=== PATIENT | male | born 2000 | race Caucasian/White ===

== ENCOUNTER 2022-11-22 14:55 | Inpatient (IN) ==
--- NOTE | 2022-11-22 15:10 | ED.PDOC ---
General ED Provider: Dr. HAYDER NEVAREZ DO Chief Complaint: Overdose Stated Complaint: Patient is a 22 yo M here for fentanyl overdose Patient arrives afebrile, hypoxic 77% in the field 98% on 10 L facemask tachycardic and crying after 4 mg narcan EMS called by friend who found him passed out, patietn awake trying to make food with EMS arrival EMS brought him in for hypoxia Patient alert and oriented x4 GCS 15 No further narcan here yet He requests we call his mother Will monitor and repeat narcan if respiratory depression recurrs, otherwise will titrate oxygen as needed Time Seen by Provider: 11/22/22 14:56 Information Source: Patient and EMT Nursing and Triage Documentation Reviewed and Agree: Yes Review of Systems Review Of Systems Constitutional: Reports Weakness; Denies Chills or Fever Eyes: Denies Vision change or Foreign body sensation Ears, Nose, Mouth, Throat: Denies Ear pain or Nose discharge Respiratory: Denies Cough or Stridor Cardiac: Denies Chest pain or Palpitations GI: Denies Constipated or Diarrhea : Denies Dysuria or Incontinence Musculoskeletal: Denies Back pain or Joint pain Skin: Denies Bruising or Rash Neurological: Reports Anxiety Endocrine: Reports No symptoms Hematologic/Lymphatic: Reports No symptoms All Other Systems: Reviewed and Negative Physical Exam Physical Exam Appearance: Reports Well-appearing and Well-nourished Ill-appearing: Mild Pain Distress: Not Applicable Eyes: Reports FARHAD and EOMI ENT: Reports Ears normal, Nose normal and Other (Poor dentition) Neck: Supple Respiratory: Reports Airway patent, Breath sounds clear and Other (tachypnea) Cardiovascular: Reports Pulses normal and Tachycardia GI/: Reports Soft and Nontender Musculoskeletal: Reports Normal strength and ROM intact Skin: Reports Warm and Dry Neurological: Reports Sensation intact and Motor intact Psychiatric: Reports Anxious; Denies Depressed Interpretation EKG Interpretation EKG Interpretation By: ED Physician Time of EKG #1: 15:12 Rate: Tachy Rhythm: Sinus Ectopy: None ST Segment: Normal Interpretation: sinus tachycardia OK, no qt prolongation Radiology Interpretation Radiology Interpretation By: ED Physician Radiology Results: Positive Exam Interpreted: CXR Xray Comments: R sided consolidiaotn middle lobe Critical Care Note Critical Care Note Total Critical Care Time (mins): 65 Course Course 11/22/22 15:09 11/22/22 15:09 Orders, Labs, Meds: Lab Review 11/22/22 11/22/22 11/22/22 15:09 15:25 16:28 WBC 41.93 H RBC 5.24 Hgb 15.7 Hct 50.6 MCV 96.6 H MCH 30.0 MCHC 31.0 L RDW Coeff of Kike 12.4 Plt Count 415 Immature Gran % (Auto) 0.8 Neut % (Auto) 86.4 H Lymph % (Auto) 2.2 L [place] % (Auto) 10.5 H Eos % (Auto) 0.0 Baso % (Auto) 0.1 Neut # (Auto) 36.2 H Lymph # (Auto) 0.9 [place] # (Auto) 4.4 H Eos # (Auto) 0.0 Baso # (Auto) 0.0 Immature Gran # (Auto) 0.4 Puncture Site Rbrach Base Excess -10.8 L O2 Saturation 99.2 H ABG pH 7.27 L* ABG pCO2 35.0 ABG pO2 162.0 H ABG HCO3 16.1 L ABG Total CO2 17.2 L Levi Test Pos Hemoglobin 1.6 H Oxyhemoglobin 92.6 L Carboxyhemoglobin 5.9 H Total Hemoglobin 16.6 O2 Delivery Device Non rebreather Oxygen Liter Flow 10.00 FiO2 % 100.0 Sodium 142.4 Potassium 4.52 Chloride 108.7 H Carbon Dioxide 16.7 L Anion Gap 21.52 BUN 12.6 Creatinine 0.88 Estimated GFR (MDRD) 110.00 BUN/Creatinine Ratio 14.31 Glucose 61.8 L Lactic Acid 5.11 H Calcium 9.06 Total Bilirubin 0.58 AST 82.1 H ALT 36.8 Alkaline Phosphatase 106.3 Troponin I 0.060 Total Protein 7.62 Albumin 4.49 Globulin 3.13 Albumin/Globulin Ratio 1.43 Orders Category Date Time Status ABG DRAW REQUEST Stat CARDIO 11/22/22 15:26 Completed EKG-(ED ONLY) Stat CARDIO 11/22/22 14:57 Completed ABG COOX Stat LAB 11/22/22 15:25 Completed BLOOD CULTURE Stat LAB 11/22/22 15:34 Received CBC W/ AUTO DIFF Stat LAB 11/22/22 15:09 Completed COMPREHENSIVE METABOLIC PANEL Stat LAB 11/22/22 15:09 Completed DRUG SCREEN (RAPID FOR ED) [DRUG SCREEN, URINE, RAPID] LAB 11/22/22 17:38 Uncollected Stat LACTIC ACID Stat LAB 11/22/22 16:28 Completed TROPONIN I Stat LAB 11/22/22 15:09 Completed Ceftriaxone/D5w 1 gm Premix [Rocephin 1 gm/50 ml D5w] Meds 11/22/22 15:14 Discontinued 1 gm in 50 ml IV ONCE Metronidazole/Sodium Chloride [Flagyl 500 mg/100 ml] Meds 11/22/22 15:14 Discontinued 500 mg in 100 ml IV ONCE Sodium Chloride 0.9% [Sodium Chloride] 1,000 ml Meds 11/22/22 15:14 Discontinued IV BOLUS Sodium Chloride 0.9% [Sodium Chloride] 1,000 ml Meds 11/22/22 16:14 Discontinued IV BOLUS CHEST, 1V AP ONLY Stat RADS 11/22/22 14:57 Completed Medications Discontinued Medications Generic Name Dose Route Start Last Admin Trade Name Freq PRN Reason Stop Dose Admin CEFTRIAXONE/D5W 1 GM PREMIX 1 gm in 50 mls @ 100 mls/hr 11/22/22 15:14 11/22/22 15:40 Rocephin 1 Gm/50 Ml D5w IV 11/22/22 15:43 100 mls/hr ONCE ONE Administration Metronidazole 500 mg in 100 mls @ 100 mls/hr 11/22/22 15:14 11/22/22 16:28 Flagyl 500 Mg/100 Ml IV 11/22/22 16:13 100 mls/hr ONCE ONE Administration Sodium Chloride 1,000 mls @ 1,000 mls/hr 11/22/22 15:14 11/22/22 15:42 Sodium Chloride IV 11/22/22 16:13 1,000 mls/hr BOLUS STA Administration Sodium Chloride 1,000 mls @ 1,000 mls/hr 11/22/22 16:14 11/22/22 17:52 Sodium Chloride IV 11/22/22 17:13 1,000 mls/hr BOLUS STA Administration Vital Signs: Temp Pulse Resp BP Pulse Ox 11/22/22 14:58 97.2 F L 131 H 20 137/89 90 L Patient amenable to ER obs and mother johnson - he was just kicked out of rehab yesterday per her CXR concerning for R sided aspiration pneumonia will cover with sepsis protocol, gental fluids less than 30 cc/kg due to hypoxia and concern for pulmonary edema 5L NC spo2 95% improving Patient has had 2100 ml sepsis bolus map 64/65, will give 500 NS, if map stays above 65 will hold care if not will add CVC and levophed MDM: Patient is a 22 yo M who overdosed accidentally snorting fentanyl today Patient afebrile, tachycardic with low blood pressure Patient had Narcan in the field and no narcan needed in the ED Exam concerning for sepsis and pneumonia 3+ labs and 1 image reviewed by me sepsis bundle started Initially high BP while patient anxious then as he rested blood pressure lowered Gentle fluids accelerated to full sepsis bolus Hypoxia improved and NC titrated down from 10 L face mask to 5 L NC Patient has map of 64/65 after 21 ML NS Rocephin and Flagyl ordered Patient amenable to admission Consults to hospitalist team WDX: Accidental fentanyl overdose, hypoxia, sepsis, aspiration pneumonia acute condition high complexity DDX: I considered ACS, intentional overdose, pneumothorax but these are less likely Patient admitted, will continue fluids Discharge Plan Discharge Patient Disposition: ADMITTED INPATIENT Discharge Problem: Aspiration pneumonia, Hypoxia, Sepsis, Accidental fentanyl overdose Did you review [place] [employer] for ALL controlled substances?: Not Applicable ED Provider: HAYDER NEVAREZ Condition: Serious Physician Progress Note: []
[2022-11-22] MEDS ORDERED: ROCEPHIN 1 GM/50 ML D5W 1 GM/50 ML BAG IV ONE (15:14)
[2022-11-22] MEDS ORDERED: SODIUM CHLORIDE 1,000 ML IV STA ×2 (15:14→16:14)
[2022-11-22] MEDS ORDERED: FLAGYL 500 MG/100 ML 500 MG/100 ML BAG IV ONE (15:14)
[2022-11-22 15:15] LABS: BASOPHILS % (AUTO) 0.1 % (0.0-3.0); HEMATOCRIT 50.6 % (42.0-52.0); HEMOGLOBIN 15.7 g/dl (14.0-18.0); IMMATURE GRANULOCYTE # (AUTO) 0.4 (0.0-1.0); IMMATURE GRANULOCYTE % (AUTO) 0.8 % (0.0-5.0); LYMPHOCYTES # (AUTO) 0.9 K/uL (0.60-3.4); LYMPHOCYTES % (AUTO) 2.2 (10.0-50.0); MEAN CORPUSCULAR VOLUME 96.6 fl (80.0-94.0); MONOCYTES # (AUTO) 4.4 K/uL (0.4-2.0); MONOCYTES % (AUTO) 10.5 (0-10); NEUTROPHILS # (AUTO) 36.2 K/ul (2.0-6.9); NEUTROPHILS % (AUTO) 86.4 % (42.2-75.2); PLATELET COUNT 415 10^3/uL (140-440); RDW COEFFICIENT OF VARIATION 12.4 % (11.6-14.8); RED BLOOD COUNT 5.24 10^6/ul (4.70-6.10); WHITE BLOOD COUNT 41.93 K/ul (4.2-10.2)
--- NOTE | 2022-11-22 15:23 | DI ---
EXAM: CHEST RADIOGRAPH TECHNIQUE: Single frontal chest radiograph. HISTORY: Shortness of breath. COMPARISON: None. FINDINGS: There is right lung pneumonia. This is likely in the right middle and lower lobes. The left lung is clear. The heart size is normal. The osseous structures are unremarkable. IMPRESSION: 1. Right lung pneumonia
[2022-11-22 15:26] LABS: ALANINE AMINOTRANSFERASE 36.8 U/L (0-50); ALBUMIN 4.49 g/dL (3.5-5.0); ALKALINE PHOSPHATASE 106.3 U/L (38-126); ASPARTATE AMINO TRANSFERASE 82.1 U/L (17-59); BILIRUBIN,TOTAL 0.58 mg/dL (0.2-1.3); BLOOD UREA NITROGEN 12.6 mg/dL (9-20); CALCIUM 9.06 mg/dL (8.4-10.2); CARBON DIOXIDE 16.7 mmol/L (22-30.0); CHLORIDE 108.7 mmol/L (98-107); CREATININE 0.88 mg/dL (0.60-1.10); GLUCOSE 61.8 mg/dL (74-106); POTASSIUM 4.52 mmol/L (3.5-5.1); SODIUM 142.4 mmol/L (134.5-145); TOTAL PROTEIN 7.62 g/dL (6.3-8.2)
[2022-11-22 15:35] LABS: ABG O2 HGB 92.6 % (95-100); BEecf -10.8 (-2.0-3.0); COHb 5.9 (0.5-1.5); HCO3 16.1 (21-28); MetHb 1.6 (0-1.5); TCO2 17.2 (19-24); sO2 99.2 % (94-98); tHb 16.6 g/dl (11.7-17.4)
[2022-11-22 15:38] LABS: TROPONIN I 0.06 ng/ml (0.0000-0.120)
[2022-11-22 15:47] LABS: ABG PH 7.27 (7.35-7.45)
[2022-11-22] MEDS ORDERED: TYLENOL PO PRN (20:22)
[2022-11-22] MEDS ORDERED: ALBUTEROL 0.083% NEB NEB PRN (20:28)
[2022-11-22] MEDS: SODIUM CHLORIDE 1,000 ML IV SCH (21:21)
[2022-11-22] MEDS: SOLU-MEDROL 125 MG IVP SCH (21:30)
[2022-11-22] MEDS ORDERED: ZOFRAN 4 MG/2 ML IVP PRN (22:11)
[2022-11-22 22:16] VITALS: BMI 21.9
[2022-11-22] MEDS: DUONEB NEB SCH (23:00)
[2022-11-22 23:26] LABS: BILIRUBIN,URINE Negative (NEGATIVE); CLARITY,URINE Clear (CLEAR); COLOR,URINE Yellow (YELLOW); KETONES,URINE 1+ (NEGATIVE); LEUKOCYTE ESTERASE ,URINE Negative (NEGATIVE); NITRITE,URINE Negative (NEGATIVE); PROTEIN,URINE 1+ (NEGATIVE); URINE, BLOOD 2+ (NEGATIVE); UROBILINOGEN,URINE 0.2 (0.2)
[2022-11-22 23:33] LABS: GLUCOSE, URINE (UA) 3+ (NEGATIVE)
[2022-11-22 23:40] LABS: ABG O2 HGB 80.3 % (95-100); ABG PH 7.44 (7.35-7.45); BEecf -1.1 (-2.0-3.0); COHb 2.7 (0.5-1.5); HCO3 23.1 (21-28); MetHb 1.5 (0-1.5); TCO2 24.1 (19-24); sO2 80.7 % (94-98); tHb 14.3 g/dl (11.7-17.4)
[2022-11-22 23:44] LABS: SQUAMOUS EPITHELIAL CELL,UR 0-2 (0-5)
[2022-11-23 01:11] LABS: ABG O2 HGB 96.4 % (95-100); ABG PH 7.42 (7.35-7.45); BEecf 0.1 (-2.0-3.0); HCO3 24.6 (21-28); MetHb 1.7 (0-1.5); TCO2 25.8 (19-24); sO2 99.7 % (94-98); tHb 14.2 g/dl (11.7-17.4)
[2022-11-23] MEDS: DUONEB NEB SCH ×6 (01:18→21:25)
[2022-11-23] MEDS ORDERED: DUONEB NEB SCH (02:00)
[2022-11-23] MEDS: SODIUM CHLORIDE 1,000 ML IV SCH ×4 (04:38→23:14)
[2022-11-23 04:59] LABS: ABG O2 HGB 91.6 % (95-100); ABG PH 7.46 (7.35-7.45); BEecf 2.5 (-2.0-3.0); COHb 2.3 (0.5-1.5); HCO3 26.3 (21-28); MetHb 1.5 (0-1.5); TCO2 27.4 (19-24); sO2 93.3 % (94-98)
[2022-11-23] MEDS: SOLU-MEDROL 125 MG IVP SCH ×3 (05:01→20:01)
[2022-11-23] MEDS: ZOSYN 3.375 GM 3.375 GM in SODIUM CHLORIDE 100ML 100 ML IV SCH ×3 (05:29→17:47)
[2022-11-23 06:15] LABS: BASOPHILS % (AUTO) 0.1 % (0.0-3.0); HEMATOCRIT 42.1 % (42.0-52.0); HEMOGLOBIN 13.5 g/dl (14.0-18.0); IMMATURE GRANULOCYTE # (AUTO) 0.2 (0.0-1.0); IMMATURE GRANULOCYTE % (AUTO) 0.6 % (0.0-5.0); LYMPHOCYTES # (AUTO) 0.6 K/uL (0.60-3.4); LYMPHOCYTES % (AUTO) 1.9 (10.0-50.0); MEAN CORPUSCULAR HEMOGLOBIN 29.2 pg (27.0-31.0); MEAN CORPUSCULAR HGB CONC 32.1 (31.8-35.4); MEAN CORPUSCULAR VOLUME 91.1 fl (80.0-94.0); MONOCYTES # (AUTO) 0.9 K/uL (0.4-2.0); NEUTROPHILS # (AUTO) 27.1 K/ul (2.0-6.9); NEUTROPHILS % (AUTO) 94.4 % (42.2-75.2); PLATELET COUNT 298 10^3/uL (140-440); RDW COEFFICIENT OF VARIATION 12.7 % (11.6-14.8); RED BLOOD COUNT 4.62 10^6/ul (4.70-6.10); WHITE BLOOD COUNT 28.73 K/ul (4.2-10.2)
[2022-11-23 06:27] LABS: ALANINE AMINOTRANSFERASE 56.4 U/L (0-50); ALBUMIN 3.27 g/dL (3.5-5.0); ALKALINE PHOSPHATASE 66.6 U/L (38-126); ASPARTATE AMINO TRANSFERASE 162.5 U/L (17-59); BILIRUBIN,TOTAL 0.72 mg/dL (0.2-1.3); CALCIUM 8.62 mg/dL (8.4-10.2); CARBON DIOXIDE 26.2 mmol/L (22-30.0); CHLORIDE 104.3 mmol/L (98-107); CREATININE 0.65 mg/dL (0.60-1.10); GLUCOSE 132.4 mg/dL (74-106); POTASSIUM 4.19 mmol/L (3.5-5.1); SODIUM 136.7 mmol/L (134.5-145); TOTAL PROTEIN 5.88 g/dL (6.3-8.2)
[2022-11-23 06:53] LABS: AMPHETAMINE SCREEN,URINE POSITIVE (NEGATIVE); BARBITURATE SCREEN,URINE NEGATIVE (NEGATIVE); BENZODIAZEPINES SCREEN,URINE NEGATIVE (NEGATIVE); CANNABINOID SCREEN,URINE POSITIVE (NEGATIVE); COCAIN SCREEN,URINE NEGATIVE (NEGATIVE); METHADONE URINE SCREEN NEGATIVE (NEGATIVE); METHAMPHETAMINES SCREEN,URINE POSITIVE (NEGATIVE); OPIATE SCREEN,URINE NEGATIVE (NEGATIVE); OXYCODONE URINE SCREEN NEGATIVE (NEGATIVE); PHENCYCLIDINE SCREEN,URINE NEGATIVE (NEGATIVE); PROPOXYPHENE URINE SCREEN NEGATIVE (NEGATIVE); TRICYCLIC ANTIDEPRESSANTS URIN NEGATIVE (NEGATIVE)
[2022-11-23] MEDS: VANCOMYCIN 1.25 GM/250 ML BAG 1.25 GM/250 ML BAG IV SCH ×2 (08:42→16:24)
[2022-11-23] MEDS ORDERED: VANCOMYCIN 1 GRAM/200 ML PREMIX 1 GM/200 ML BAG IV SCH (09:00)
--- NOTE | 2022-11-23 12:18 | PCM ---
Date of Service Date Seen by Provider: 11/23/22 Time Seen by Provider: 08:30 Admit Day/Time Admission Date: 11/22/22 Reason for Admission Chief Complaint: HYPOXIA, SEPSIS, PNEUMONIA Hospital Provider Hospital Provider[facility] History of Present Illness History of Present Illness: 22 yo presented to the ER following an unintentional overdose of fentanyl per patient. A friend found him unresponsive. EMS reported O2 sat upon arrival was in the 70s. He was given a dose of narcan and O2 sat improved to 85%. He was placed on a NRB at 10L. ER weaned patient down to 2L prior to admission the the med/surg floor. WBC was found to be in the 40s, aspiration pneumonia noted on chest x-ray, and lactic acidosis. Mother reported that he recently got kicked out of rehab and has been hanging around the same group of friends as before. Patient reports he has never overdosed in the past. At approximately 2330 last night, patient became more hypoxic with sat dropping down into the 80s after being put on NRB. ABG was obtained and showed PO2 in the 40s. He was placed on vapotherm at 100% FiO2 and improved after 1 hour. FiO2 was >100 and was weaned down to 40%. Patient states he feels he is breathing better but just generally feels tired and weak. Denies any pain. No fever noted. No other complaints. Case Discussed With Case Discussed With: Patient's case was discussed with the ER Physicians, Dr. Moran [facility] Surgical History History of ankle surgery Z98.890 - Other specified postprocedural states (ICD-10) Family History MATERNAL GRANDFATHER No problems noted. PATERNAL GRANDFATHER Diabetes MATERNAL GRANDMOTHER Hypertension Schizophrenia Social History Smoking and tobacco status: Current every day smoker Alcohol intake: current Alcohol intake frequency: a few times a month Alcohol type: beer Substance use type: opiates Counseling given: Yes Counseling provided: treatment program Adopted: No Caregiver/support person: Yes Foster care: No Household members: family Housing: house Lives independently: No Allergies Allergies Allergy/AdvReac Type Severity Reaction Status Date / Time No Known Allergies Allergy Unverified 11/22/22 14:56 Current Medications Home Medications 1 [No Reported Medications] 11/22/22 [History Confirmed 11/22/22 Last Taken Unknown] Home Acetaminophen (Acetaminophen 325 Mg Tablet) 650 mg PO Q4H PRN PRN Reason: Mild Pain Albuterol Sulfate (Albuterol Sulfate 0.083% Vial.Neb) 2.5 mg NEB RTQ4H PRN PRN Reason: Wheezing Albuterol/Ipratropium (Ipratropium/Albuterol Vial.Neb) 3 ml NEB RTQ4H SCOTT Last Admin: 11/23/22 09:10 Dose: 3 ml Sodium Chloride (Sodium Chloride) 1,000 mls @ 125 mls/hr IV .Q8H [facility] Last Admin: 11/23/22 04:38 Dose: 125 mls/hr Piperacillin Sod/Tazobactam (Sod 3.375 gm/ Sodium Chloride) 100 mls @ 200 mls/hr IV Q6HR [facility] Stop: 11/26/22 05:59 Last Admin: 11/23/22 05:29 Dose: 200 mls/hr VANCOMYCIN/WATER FOR INJ (PEG) (Vancomycin 1.25 Gm/250 Ml Bag) 1.25 gm in 250 mls @ 250 mls/hr IV 0100,0900,1700 [facility] Stop: 11/26/22 08:59 Last Admin: 11/23/22 08:42 Dose: 250 mls/hr Methylprednisolone Sodium Succinate (Methylprednisolone Sod Succ/Pf 125 Mg/2 Ml Vial) 40 mg IVP Q8HR [facility] Last Admin: 11/23/22 05:01 Dose: 40 mg Ondansetron HCl (Ondansetron Hcl/Pf 4 Mg/2 Ml Sdv) 4 mg IVP Q6H PRN PRN Reason: Nausea / Vomiting Discontinued Medications Albuterol/Ipratropium (Ipratropium/Albuterol Vial.Neb) 3 ml NEB RTQ4H [place]OTT CEFTRIAXONE/D5W 1 GM PREMIX (Rocephin 1 Gm/50 Ml D5w) 1 gm in 50 mls @ 100 mls/hr IV ONCE ONE Stop: 11/22/22 15:43 Last Admin: 11/22/22 15:40 Dose: 100 mls/hr Metronidazole (Flagyl 500 Mg/100 Ml) 500 mg in 100 mls @ 100 mls/hr IV ONCE ONE Stop: 11/22/22 16:13 Last Admin: 11/22/22 16:28 Dose: 100 mls/hr Sodium Chloride (Sodium Chloride) 1,000 mls @ 1,000 mls/hr IV BOLUS STA Stop: 11/22/22 16:13 Last Admin: 11/22/22 15:42 Dose: 1,000 mls/hr Sodium Chloride (Sodium Chloride) 1,000 mls @ 1,000 mls/hr IV BOLUS STA Stop: 11/22/22 17:13 Last Admin: 11/22/22 17:52 Dose: 1,000 mls/hr Review of Systems Constitutional: Reports Fatigue and Weakness Head: Reports Normocephalic Eyes: Reports No symptoms Ears: Reports No symptoms Nose: Reports No symptoms Mouth: Reports No symptoms Throat: Reports No symptoms Cardiovascular: Reports No symptoms Respiratory: Reports Shortness of air Gastrointestinal: Reports No symptoms Genitourinary: Reports No Symptoms Musculoskeletal: Reports No symptoms Endocrine: Reports No symptoms Hematology: Reports No symptoms Immunology: Reports No symptoms Neurological: Reports No symptoms Psychiatric: Reports No symptoms Physical examination Most Recent Vital Signs: Most Recent Vital Signs Temperature 98.3 F 11/23/22 10:00 Temperature Source Oral 11/23/22 10:00 Temperature Source Infrared 11/22/22 14:58 Pulse Rate 93 11/23/22 10:00 Respiratory Rate 17 11/23/22 10:00 Blood Pressure 126/70 11/23/22 10:00 Blood Pressure Mean 88 11/23/22 10:00 Blood Pressure Right Arm 98/67 11/22/22 20:44 Blood Pressure Location Left Arm 11/23/22 10:00 Blood Pressure Position Supine 11/23/22 10:00 O2 Sat by Pulse Oximetry 98 11/23/22 10:00 Oxygen Delivery Method Vapo Therm 11/23/22 10:00 Oxygen Flow Rate 40 11/23/22 08:00 Fraction of Inspired Oxygen (FIO2) 40 11/23/22 10:00 Height 6 ft 11/22/22 20:44 Weight 162 lb 11/22/22 20:44 Telemetry Type Remote Telemetry 11/23/22 07:00 Telemetry Monitoring Continues 11/23/22 07:00 Telemetry Heart Rate 100 11/23/22 07:00 Telemetry SPO2 98 11/23/22 07:00 EKG UT Interval 0.14 11/23/22 07:00 EKG QRS Interval 0.08 11/23/22 07:00 Telemetry Strip Reading sr/st 11/23/22 07:00 Appearance: Positive Well-appearing, Well-nourished, Alert and Oriented x3 and Thin Skin: Positive Warm, Good Turgor and Good Color HEENT: Positive Normocephalic and Atraumatic Neck: Positive Supple and Midline Trachea Chest/Lungs: Positive Symmetrical With Equal Breath Sounds, Rhonci (RLL) and Good Air Movement all 4 Lung Anne Heart: Positive RRR and Pulses Normal GI/: Positive Soft, Nontender, Bowel Sounds Normal and No Distention Musculoskeletal: Positive Normal Gait and Station Extremities: Positive Intact Peripheral Pulses and Good ROM in All Joints Neurological: Positive Sensation Intact, Motor intact, Reflexes Intact, Alert, Oriented and Muscle Strength 5/5 in Upper and Lower Extremities Bilaterally Psychiatric: Positive Oriented x4, Appropriate Mood, Appropriate Affect and Intact Memory Labs This Visit Labs This Visit: Labs This Visit 11/22/22 11/22/22 11/22/22 15:09 15:25 16:28 WBC 41.93 H RBC 5.24 Hgb 15.7 Hct 50.6 MCV 96.6 H MCH 30.0 MCHC 31.0 L RDW Coeff of Kike 12.4 Plt Count 415 Immature Gran % (Auto) 0.8 Neut % (Auto) 86.4 H Lymph % (Auto) 2.2 L [place] % (Auto) 10.5 H Eos % (Auto) 0.0 Baso % (Auto) 0.1 Neut # (Auto) 36.2 H Lymph # (Auto) 0.9 [place] # (Auto) 4.4 H Eos # (Auto) 0.0 Baso # (Auto) 0.0 Immature Gran # (Auto) 0.4 Puncture Site Rbrach Base Excess -10.8 L O2 Saturation 99.2 H ABG pH 7.27 L* ABG pCO2 35.0 ABG pO2 162.0 H ABG HCO3 16.1 L ABG Total CO2 17.2 L Levi Test Pos Hemoglobin 1.6 H Oxyhemoglobin 92.6 L Carboxyhemoglobin 5.9 H Total Hemoglobin 16.6 O2 Delivery Device Non rebreather Oxygen Liter Flow 10.00 FiO2 % 100.0 Sodium 142.4 Potassium 4.52 Chloride 108.7 H Carbon Dioxide 16.7 L Anion Gap 21.52 BUN 12.6 Creatinine 0.88 Estimated GFR (MDRD) 110.00 BUN/Creatinine Ratio 14.31 Glucose 61.8 L Lactic Acid 5.11 H Calcium 9.06 Total Bilirubin 0.58 AST 82.1 H ALT 36.8 Alkaline Phosphatase 106.3 Troponin I 0.060 Total Protein 7.62 Albumin 4.49 Globulin 3.13 Albumin/Globulin Ratio 1.43 Urine Color Urine Clarity Urine pH Ur Specific [place] Urine Protein Urine Glucose (UA) Urine Ketones Urine Blood Urine Nitrite Urine Bilirubin Urine Urobilinogen Ur Leukocyte Esterase Urine Microscopic RBC Ur Squamous Epith Cells Urine Opiates Screen Ur Oxycodone Screen Urine Methadone Screen Ur Propoxyphene Screen Ur Barbiturates Screen U Tricyclic Antidepress Ur Phencyclidine Scrn Ur Amphetamine Screen U Methamphetamines Scrn U Benzodiazepines Scrn Urine Cocaine Screen U Cannabinoids Screen 11/22/22 11/22/22 11/22/22 17:38 20:21 22:00 WBC RBC Hgb Hct MCV MCH MCHC RDW Coeff of Kike Plt Count Immature Gran % (Auto) Neut % (Auto) Lymph % (Auto) [place] % (Auto) Eos % (Auto) Baso % (Auto) Neut # (Auto) Lymph # (Auto) [place] # (Auto) Eos # (Auto) Baso # (Auto) Immature Gran # (Auto) Puncture Site Base Excess O2 Saturation ABG pH ABG pCO2 ABG pO2 ABG HCO3 ABG Total CO2 Levi Test Hemoglobin Oxyhemoglobin Carboxyhemoglobin Total Hemoglobin O2 Delivery Device Oxygen Liter Flow FiO2 % Sodium Potassium Chloride Carbon Dioxide Anion Gap BUN Creatinine Estimated GFR (MDRD) BUN/Creatinine Ratio Glucose Lactic Acid 2.32 H Calcium Total Bilirubin AST ALT Alkaline Phosphatase Troponin I Total Protein Albumin Globulin Albumin/Globulin Ratio Urine Color Yellow Urine Clarity Clear Urine pH 5.0 Ur Specific [place] 1.025 Urine Protein 1+ H Urine Glucose (UA) 3+ H Urine Ketones 1+ H Urine Blood 2+ H Urine Nitrite Negative Urine Bilirubin Negative Urine Urobilinogen 0.2 Ur Leukocyte Esterase Negative Urine Microscopic RBC 10-20 Ur Squamous Epith Cells 0-2 Urine Opiates Screen Negative Ur Oxycodone Screen Negative Urine Methadone Screen Negative Ur Propoxyphene Screen Negative Ur Barbiturates Screen Negative U Tricyclic Antidepress Negative Ur Phencyclidine Scrn Negative Ur Amphetamine Screen Positive H U Methamphetamines Scrn Positive H U Benzodiazepines Scrn Negative Urine Cocaine Screen Negative U Cannabinoids Screen Positive H 11/22/22 11/23/22 11/23/22 23:35 01:05 04:39 WBC RBC Hgb Hct MCV MCH MCHC RDW Coeff of Kike Plt Count Immature Gran % (Auto) Neut % (Auto) Lymph % (Auto) [place] % (Auto) Eos % (Auto) Baso % (Auto) Neut # (Auto) Lymph # (Auto) [place] # (Auto) Eos # (Auto) Baso # (Auto) Immature Gran # (Auto) Puncture Site Rb Lb Rrad Base Excess -1.1 0.1 2.5 O2 Saturation 80.7 L 99.7 H 93.3 L ABG pH 7.44 7.42 7.46 H ABG pCO2 34.0 L 38.0 37.0 ABG pO2 43.0 L* 191.0 H 64.0 L ABG HCO3 23.1 24.6 26.3 ABG Total CO2 24.1 H 25.8 H 27.4 H Levi Test + + + Hemoglobin 1.5 1.7 H 1.5 Oxyhemoglobin 80.3 L 96.4 91.6 L Carboxyhemoglobin 2.7 H 2.0 H 2.3 H Total Hemoglobin 14.3 14.2 14.0 O2 Delivery Device Cannula Vapotherm Vapotherm Oxygen Liter Flow 6.00 FiO2 % 44.0 100.0 40.0 Sodium Potassium Chloride Carbon Dioxide Anion Gap BUN Creatinine Estimated GFR (MDRD) BUN/Creatinine Ratio Glucose Lactic Acid Calcium Total Bilirubin AST ALT Alkaline Phosphatase Troponin I Total Protein Albumin Globulin Albumin/Globulin Ratio Urine Color Urine Clarity Urine pH Ur Specific [place] Urine Protein Urine Glucose (UA) Urine Ketones Urine Blood Urine Nitrite Urine Bilirubin Urine Urobilinogen Ur Leukocyte Esterase Urine Microscopic RBC Ur Squamous Epith Cells Urine Opiates Screen Ur Oxycodone Screen Urine Methadone Screen Ur Propoxyphene Screen Ur Barbiturates Screen U Tricyclic Antidepress Ur Phencyclidine Scrn Ur Amphetamine Screen U Methamphetamines Scrn U Benzodiazepines Scrn Urine Cocaine Screen U Cannabinoids Screen 11/23/22 06:09 WBC 28.73 H D RBC 4.62 L Hgb 13.5 L Hct 42.1 D MCV 91.1 D MCH 29.2 MCHC 32.1 RDW Coeff of Kike 12.7 Plt Count 298 Immature Gran % (Auto) 0.6 Neut % (Auto) 94.4 H Lymph % (Auto) 1.9 L [place] % (Auto) 3.0 Eos % (Auto) 0.0 Baso % (Auto) 0.1 Neut # (Auto) 27.1 H Lymph # (Auto) 0.6 [place] # (Auto) 0.9 Eos # (Auto) 0.0 Baso # (Auto) 0.0 Immature Gran # (Auto) 0.2 Puncture Site Base Excess O2 Saturation ABG pH ABG pCO2 ABG pO2 ABG HCO3 ABG Total CO2 Levi Test Hemoglobin Oxyhemoglobin Carboxyhemoglobin Total Hemoglobin O2 Delivery Device Oxygen Liter Flow FiO2 % Sodium 136.7 Potassium 4.19 Chloride 104.3 Carbon Dioxide 26.2 D Anion Gap 10.39 BUN 11.0 Creatinine 0.65 Estimated GFR (MDRD) 157.00 BUN/Creatinine Ratio 16.92 Glucose 132.4 H D Lactic Acid 1.69 Calcium 8.62 Total Bilirubin 0.72 AST 162.5 H D ALT 56.4 H Alkaline Phosphatase 66.6 D Troponin I Total Protein 5.88 L Albumin 3.27 L Globulin 2.61 Albumin/Globulin Ratio 1.25 Urine Color Urine Clarity Urine pH Ur Specific [place] Urine Protein Urine Glucose (UA) Urine Ketones Urine Blood Urine Nitrite Urine Bilirubin Urine Urobilinogen Ur Leukocyte Esterase Urine Microscopic RBC Ur Squamous Epith Cells Urine Opiates Screen Ur Oxycodone Screen Urine Methadone Screen Ur Propoxyphene Screen Ur Barbiturates Screen U Tricyclic Antidepress Ur Phencyclidine Scrn Ur Amphetamine Screen U Methamphetamines Scrn U Benzodiazepines Scrn Urine Cocaine Screen U Cannabinoids Screen Microbiology This Visit 11/22/22 15:20 Blood Blood Culture - Final Imaging Imaging: EXAM: CHEST RADIOGRAPH TECHNIQUE: Single frontal chest radiograph. HISTORY: Shortness of breath. COMPARISON: None. FINDINGS: There is right lung pneumonia. This is likely in the right middle and lower lobes. The left lung is clear. The heart size is normal. The osseous structures are unremarkable. IMPRESSION: 1. Right lung pneumonia Review Statement Review Statement: I have independently reviewed and interpreted the labs/EKGs/imaging that were ordered by the ER provider. I have reviewed all outside records that are available currently in our EMR including imaging/notes/labs from previous visits. Plan Plan: 1. Acute Hypoxic Respiratory Failure in the setting of Aspiration Pneumonia and drug overdose - on vapotherm currently, wean off as tolerated, receiving vanc and zosyn, steroids, nebs 2. Sepsis in setting of aspiration pneumonia - receiving vancomycin and zosyn, 2 prelim blood cultures showing gram positive cocci, received sepsis IVF in ER, continue NS@125mL/hr 3. Acute Transaminitis - likely due to #2, will trend enzymes, if worsening will complete hep panel and US liver 4. Drug abuse - patient requesting resources, recently kicked out of rehab, education provided 5. Tobacco use - nicotine patch if patient desires, discussed cessation DVT Prophylaxis: Up ad [place] Time Spent: Greater than 80 minutes spent with patient, 50% of the time spent with this patient was devoted to counseling and coordination of care. Advanced Care Plannin minutes spent discussing advance care planning. Smoking Cessation: 5 minutes spent discussing smoking cessation. Disposition: Admit to: Discussed Plan of Care with Dr. Elizabeth Mccallum. Medications Medication Orders: Medications Ordered Category Date Time Status Acetaminophen [Tylenol] Meds 11/22/22 20:22 Active 650 mg PO Q4H PRN Albuterol Sulfate 0.083% Neb [Albuterol 0.083% Neb] Meds 11/22/22 20:28 Active 2.5 mg NEB RTQ4H PRN Ipratropium/Albuterol Neb [Duoneb] Meds 11/22/22 22:00 Active 3 ml NEB RTQ4H Methylprednisolone Sod Succ/Pf [Solu-Medrol 125 mg] Meds 11/22/22 21:00 Active 40 mg IVP Q8HR Ondansetron HCl/Pf [Zofran 4 mg/2 ml] Meds 11/22/22 22:11 Active 4 mg IVP Q6H PRN Piperacillin Sodium/Tazobactam [Zosyn 3.375 gm] 3.375 Meds 11/23/22 06:00 Active gm 0.9 % Sodium Chloride [Sodium Chloride 100Ml] 100 ml IV Q6HR Sodium Chloride 0.9% [Sodium Chloride] 1,000 ml Meds 11/22/22 20:30 Active IV 125 mls/hr Vancomycin/Water For Inj (Peg) [Vancomycin 1.25 gm/250 Meds 08/16/23 09:00 A ctive ml Bag] 1.25 gm in 250 ml IV 0100,0900,1700
[2022-11-23] MEDS: FLORASTOR PO SCH ×2 (13:45→20:01)
[2022-11-23] MEDS: CEPACOL SORE THROAT LOZENGE MUCOUSMEMB PRN (19:59)
[2022-11-24] MEDS: ZOSYN 3.375 GM 3.375 GM in SODIUM CHLORIDE 100ML 100 ML IV SCH ×4 (00:37→18:13)
[2022-11-24] MEDS: DUONEB NEB SCH ×6 (01:15→21:10)
[2022-11-24] MEDS: VANCOMYCIN 1.25 GM/250 ML BAG 1.25 GM/250 ML BAG IV SCH ×2 (01:36→09:09)
[2022-11-24] MEDS: SOLU-MEDROL 125 MG IVP SCH ×3 (04:25→21:45)
[2022-11-24 05:34] LABS: BASOPHILS % (AUTO) 0.1 % (0.0-3.0); HEMATOCRIT 35.2 % (42.0-52.0); HEMOGLOBIN 11.4 g/dl (14.0-18.0); IMMATURE GRANULOCYTE # (AUTO) 0.2 (0.0-1.0); IMMATURE GRANULOCYTE % (AUTO) 0.9 % (0.0-5.0); LYMPHOCYTES # (AUTO) 0.7 K/uL (0.60-3.4); LYMPHOCYTES % (AUTO) 3.5 (10.0-50.0); MEAN CORPUSCULAR HEMOGLOBIN 29.6 pg (27.0-31.0); MEAN CORPUSCULAR HGB CONC 32.4 (31.8-35.4); MEAN CORPUSCULAR VOLUME 91.4 fl (80.0-94.0); MONOCYTES # (AUTO) 1.1 K/uL (0.4-2.0); MONOCYTES % (AUTO) 5.1 (0-10); NEUTROPHILS # (AUTO) 18.5 K/ul (2.0-6.9); NEUTROPHILS % (AUTO) 90.4 % (42.2-75.2); PLATELET COUNT 255 10^3/uL (140-440); RDW COEFFICIENT OF VARIATION 12.9 % (11.6-14.8); RED BLOOD COUNT 3.85 10^6/ul (4.70-6.10); WHITE BLOOD COUNT 20.47 K/ul (4.2-10.2)
[2022-11-24 05:45] LABS: ALANINE AMINOTRANSFERASE 58.5 U/L (0-50); ALBUMIN 3.02 g/dL (3.5-5.0); ALKALINE PHOSPHATASE 59.3 U/L (38-126); ASPARTATE AMINO TRANSFERASE 123.3 U/L (17-59); BILIRUBIN,TOTAL 0.47 mg/dL (0.2-1.3); BLOOD UREA NITROGEN 6.6 mg/dL (9-20); CALCIUM 8.57 mg/dL (8.4-10.2); CARBON DIOXIDE 29.7 mmol/L (22-30.0); CHLORIDE 109.2 mmol/L (98-107); CREATININE 0.56 mg/dL (0.60-1.10); POTASSIUM 3.61 mmol/L (3.5-5.1); SODIUM 141.5 mmol/L (134.5-145); TOTAL PROTEIN 5.59 g/dL (6.3-8.2)
[2022-11-24] MEDS: SODIUM CHLORIDE 1,000 ML IV SCH ×4 (06:16→21:51)
[2022-11-24] MEDS: FLORASTOR PO SCH ×2 (09:09→21:45)
[2022-11-24] MEDS: CEPACOL SORE THROAT LOZENGE MUCOUSMEMB PRN ×3 (09:21→21:48)
--- NOTE | 2022-11-24 11:09 | PCM.PROG ---
Date/Time Seen Date Seen by Provider: 11/24/22 Time Seen by Provider: 08:30 Provider Provider: KEVIN AYERS, [facility] Chief Complaint Chief Complaint: HYPOXIA, SEPSIS, PNEUMONIA Subjective Subjective: No events overnight. On 2L O2 today. Feeling better. Coughing up sputum. Objective Appearance: Positive No Apparent Distress, Alert and Oriented x3 and Thin Chest/Lungs: Positive Symmetrical With Equal Breath Sounds, Clear to Auscultation Bilaterally (diminished RLL), Good Air Movement all 4 Lung Anne and Other Heart: Positive RRR and Pulses Normal GI/: Positive Soft, Nontender, Bowel Sounds Normal and No Distention Musculoskeletal: Positive Normal Gait and Station Neurological: Positive Sensation Intact, Motor intact, Reflexes Intact, Alert, O riented and Muscle Strength 5/5 in Upper and Lower Extremities Bilaterally Vital Signs Vital Signs: Vital Signs: Last 24 Hours 11/23/22 14:00 11/23/22 18:00 11/23/22 13:00 Temperature 97.7 F 97.4 F L Temperature Source Oral Temporal Artery Scan Pulse Rate 106 H 100 Respiratory Rate 19 16 Blood Pressure 105/52 L 115/59 L Blood Pressure Mean 69 77 Blood Pressure Location Left Arm Right Arm Blood Pressure Position Supine Supine O2 Sat by Pulse Oximetry 96 98 Oxygen Delivery Method Room Air Nasal Cannula Oxygen Flow Rate 2 Telemetry Type Remote Telemetry Telemetry Monitoring Continues Telemetry Heart Rate 100 Telemetry SPO2 EKG IA Interval 0.16 EKG QRS Interval 0.08 Telemetry Strip Reading sr/st 11/23/22 13:50 11/23/22 19:00 11/23/22 21:13 Temperature 98.6 F Temperature Source Oral Pulse Rate 111 H Respiratory Rate 18 Blood Pressure 129/75 Blood Pressure Mean 93 Blood Pressure Location Right Arm Blood Pressure Position Supine O2 Sat by Pulse Oximetry 96 99 Oxygen Delivery Method Nasal Cannula Nasal Cannula Oxygen Flow Rate 2 2 Telemetry Type Remote Telemetry Telemetry Monitoring Continues Telemetry Heart Rate 101 H Telemetry SPO2 99 EKG IA Interval 0.15 EKG QRS Interval 0.04 L Telemetry Strip Reading ST 11/23/22 19:25 11/24/22 01:00 11/23/22 20:00 Temperature Temperature Source Pulse Rate Respiratory Rate Blood Pressure Blood Pressure Mean Blood Pressure Location Blood Pressure Position O2 Sat by Pulse Oximetry 98 Oxygen Delivery Method Nasal Cannula Nasal Cannula Oxygen Flow Rate 2 2 Telemetry Type Remote Telemetry Telemetry Monitoring Continues Telemetry Heart Rate 91 Telemetry SPO2 97 EKG IA Interval 0.15 EKG QRS Interval 0.05 L Telemetry Strip Reading SR 11/24/22 04:58 11/24/22 05:09 11/24/22 07:00 Temperature 98.2 F Temperature Source Oral Pulse Rate 107 H Respiratory Rate 18 Blood Pressure 84/43 L Blood Pressure Mean 56 Blood Pressure Location Right Arm Blood Pressure Position Supine O2 Sat by Pulse Oximetry 98 96 Oxygen Delivery Method Nasal Cannula Nasal Cannula Oxygen Flow Rate 2 2 Telemetry Type Remote Telemetry Telemetry Monitoring Continues Telemetry Heart Rate 100 Telemetry SPO2 EKG IA Interval 0.14 EKG QRS Interval 0.08 Telemetry Strip Reading sr/st 11/24/22 10:00 11/24/22 10:00 Temperature 97.9 F Temperature Source Oral Pulse Rate 77 Respiratory Rate 16 Blood Pressure 130/81 Blood Pressure Mean 97 Blood Pressure Location Right Arm Blood Pressure Position Supine O2 Sat by Pulse Oximetry 98 98 Oxygen Delivery Method Room Air Room Air Oxygen Flow Rate Telemetry Type Telemetry Monitoring Telemetry Heart Rate Telemetry SPO2 EKG IA Interval EKG QRS Interval Telemetry Strip Reading Lab Results Lab Results: Lab Results: Last 24 Hours 11/24/22 11/24/22 08:40 05:27 WBC 20.47 H D RBC 3.85 L Hgb 11.4 L Hct 35.2 L D MCV 91.4 MCH 29.6 MCHC 32.4 RDW Coeff of Kike 12.9 Plt Count 255 Immature Gran % (Auto) 0.9 Neut % (Auto) 90.4 H Lymph % (Auto) 3.5 L [place] % (Auto) 5.1 Eos % (Auto) 0.0 Baso % (Auto) 0.1 Neut # (Auto) 18.5 H Lymph # (Auto) 0.7 [place] # (Auto) 1.1 Eos # (Auto) 0.0 Baso # (Auto) 0.0 Immature Gran # (Auto) 0.2 Sodium 141.5 Potassium 3.61 Chloride 109.2 H Carbon Dioxide 29.7 Anion Gap 6.21 BUN 6.6 L Creatinine 0.56 L Estimated GFR (MDRD) 186.00 BUN/Creatinine Ratio 11.78 Glucose 145.0 H Lactic Acid 1.32 Calcium 8.57 Total Bilirubin 0.47 AST 123.3 H D ALT 58.5 H Alkaline Phosphatase 59.3 Total Protein 5.59 L Albumin 3.02 L Globulin 2.57 Albumin/Globulin Ratio 1.17 Vancomycin Trough 9.144 L Additional Comments Additional Comments: I have independently reviewed and interpreted the labs/EKGs/imaging ordered during this hospital stay. I have reviewed outside records that are available in our EMR that pertain to medical stay including imaging/notes/labs from previous visits. Active Medications Active Medications: Medications Generic Name Dose Route Start Last Admin Trade Name Freq PRN Reason Stop Dose Admin Acetaminophen 650 mg 11/22/22 20:22 Acetaminophen 325 Mg Tablet PO Q4H PRN Mild Pain Albuterol Sulfate 2.5 mg 11/22/22 20:28 Albuterol Sulfate 0.083% Vial.Neb NEB RTQ4H PRN Wheezing Albuterol/Ipratropium 3 ml 11/22/22 22:00 11/24/22 10:05 Ipratropium/Albuterol Vial.Neb NEB 3 ml RTQ4H SCOTT Administration Benzocaine/Menthol 1 lozenge 11/23/22 19:26 11/24/22 09:21 Benzocaine/Menth/Cetylpyrd Cl 1 Lozenge MUCOUSMEMB 1 lozenge PRN PRN Administration SORE THROAT Sodium Chloride 1,000 mls @ 125 mls/hr 11/22/22 20:30 11/24/22 09:14 Sodium Chloride IV 125 mls/hr .Q8H SCOTT Administration Piperacillin Sod/Tazobactam 100 mls @ 200 mls/hr 11/23/22 06:00 11/24/22 04:59 Sod 3.375 gm/ Sodium Chloride IV 11/26/22 05:59 200 mls/hr Q6HR SCOTT Administration VANCOMYCIN/WATER FOR INJ (PEG) 1.5 gm in 300 mls @ 200 mls/hr 11/24/22 17:00 Vancomycin 1.5 Gram/300 Ml Premix IV 11/27/22 16:59 0100,0900,1700 SCOTT Methylprednisolone Sodium Succinate 40 mg 11/22/22 21:00 11/24/22 04:25 Methylprednisolone Sod Succ/Pf 125 Mg/2 Ml Vial IVP 40 mg Q8HR SCOTT Administration Ondansetron HCl 4 mg 11/22/22 22:11 Ondansetron Hcl/Pf 4 Mg/2 Ml Sdv IVP Q6H PRN Nausea / Vomiting Saccharomyces Boulardii 250 mg 11/23/22 13:30 11/24/22 09:09 Saccharomyces Boulardii 250 Mg Capsule PO 250 mg BID SCOTT Administration Plan Plan: 1. Acute Hypoxic Respiratory Failure in the setting of Aspiration Pneumonia and drug overdose - Improving, requiring 2L O2 via NC at this time - continue to wean, receiving vanc and zosyn, steroids, nebs 2. Sepsis in setting of aspiration pneumonia - receiving vancomycin and zosyn, 2 prelim blood cultures showing gram positive cocci - repeat blood cultures collected today, received sepsis IVF in ER, continue NS@125mL/hr 3. Acute Transaminitis - likely due to #2, will trend enzymes, if worsening will US liver, hep panel obtained 4. Drug abuse - patient requesting resources, recently kicked out of rehab, education provided Review Statement Review Statement: I have personally discussed and reviewed the patient's visit/currently labs/imaging/decision making with Dr. Mccallum, my supervising attending. Greater that 50 minutes spent with patient, 50% of the time spent with this patient was devoted to counseling and coordination of care.
[2022-11-24] MEDS: NICODERM 21 MG TD SCH (12:41)
[2022-11-24] MEDS: VANCOMYCIN 1.5 GRAM/300 ML PREMIX 1.5 GM/300 ML BAG IV SCH (16:30)
[2022-11-25] MEDS: ZOSYN 3.375 GM 3.375 GM in SODIUM CHLORIDE 100ML 100 ML IV SCH ×2 (00:21→05:30)
[2022-11-25] MEDS: VANCOMYCIN 1.5 GRAM/300 ML PREMIX 1.5 GM/300 ML BAG IV SCH ×2 (01:32→08:33)
[2022-11-25] MEDS: DUONEB NEB SCH ×2 (02:40→04:40)
[2022-11-25 05:11] VITALS: BP 110/65; PULSE 103; RESP 16; TEMP 97.9
[2022-11-25] MEDS: SOLU-MEDROL 125 MG IVP SCH (05:30)
[2022-11-25] MEDS: SODIUM CHLORIDE 1,000 ML IV SCH (05:34)
[2022-11-25 07:19] LABS: HBsAgSCREEN Negative (Negative); HCV ANTIBODY Non Reactive (Non Reactive); HEP A AB, IgM Negative (Negative); HEP B CORE Ab, IgM Negative (Negative)
[2022-11-25 08:23] LABS: ALANINE AMINOTRANSFERASE 62.2 U/L (0-50); ALBUMIN 3.16 g/dL (3.5-5.0); ALKALINE PHOSPHATASE 55.2 U/L (38-126); ASPARTATE AMINO TRANSFERASE 69.5 U/L (17-59); BILIRUBIN,TOTAL 0.6 mg/dL (0.2-1.3); BLOOD UREA NITROGEN 9.5 mg/dL (9-20); CALCIUM 8.71 mg/dL (8.4-10.2); CARBON DIOXIDE 26.8 mmol/L (22-30.0); CHLORIDE 108.3 mmol/L (98-107); CREATININE 0.61 mg/dL (0.60-1.10); GLUCOSE 124.2 mg/dL (74-106); POTASSIUM 3.84 mmol/L (3.5-5.1); SODIUM 141.2 mmol/L (134.5-145); TOTAL PROTEIN 5.83 g/dL (6.3-8.2)
[2022-11-25 08:31] LABS: BASOPHILS % (AUTO) 0.1 % (0.0-3.0); HEMATOCRIT 38.8 % (42.0-52.0); HEMOGLOBIN 12.2 g/dl (14.0-18.0); IMMATURE GRANULOCYTE # (AUTO) 0.2 (0.0-1.0); IMMATURE GRANULOCYTE % (AUTO) 1.1 % (0.0-5.0); LYMPHOCYTES # (AUTO) 1.1 K/uL (0.60-3.4); LYMPHOCYTES % (AUTO) 6.9 (10.0-50.0); MEAN CORPUSCULAR HEMOGLOBIN 29.2 pg (27.0-31.0); MEAN CORPUSCULAR HGB CONC 31.4 (31.8-35.4); MEAN CORPUSCULAR VOLUME 92.8 fl (80.0-94.0); MONOCYTES # (AUTO) 0.8 K/uL (0.4-2.0); MONOCYTES % (AUTO) 5.2 (0-10); NEUTROPHILS # (AUTO) 13.8 K/ul (2.0-6.9); NEUTROPHILS % (AUTO) 86.7 % (42.2-75.2); PLATELET COUNT 298 10^3/uL (140-440); RDW COEFFICIENT OF VARIATION 13.2 % (11.6-14.8); RED BLOOD COUNT 4.18 10^6/ul (4.70-6.10); WHITE BLOOD COUNT 15.91 K/ul (4.2-10.2)
[2022-11-25] MEDS: FLORASTOR PO SCH (08:31)
[2022-11-25] MEDS: NICODERM 21 MG TD SCH (08:31)
--- NOTE | 2022-11-25 12:08 | DCSUM ---
Admission Date Admission Date: 11/22/22 Discharge Date Discharge Date: 11/25/22 Admission Diagnosis Admission Diagnosis: 1. Acute Hypoxic Respiratory Failure in the setting of Aspiration Pneumonia and drug overdose 2. Sepsis in setting of aspiration pneumonia 3. Acute Transaminitis 4. Drug abuse 5. Tobacco use Discharge Diagnosis Discharge Diagnosis: 1. Acute Hypoxic Respiratory Failure in the setting of Aspiration Pneumonia and drug overdose - Resolved respiratory failure, improving aspiration pneumonia 2. Sepsis in setting of aspiration pneumonia - Ruled Out 3. Acute Transaminitis - Improving 4. Drug abuse - chronic Hospital Provider Hospital Provider[facility] Summary of History and Physical Summary of History and Physical: 22 yo presented to the ER following an unintentional overdose of fentanyl per patient. A friend found him unresponsive. EMS reported O2 sat upon arrival was in the 70s. He was given a dose of narcan and O2 sat improved to 85%. He was pl aced on a NRB at 10L. ER weaned patient down to 2L prior to admission the the med/surg floor. WBC was found to be in the 40s, aspiration pneumonia noted on chest x-ray, and lactic acidosis. Mother reported that he recently got kicked out of rehab and has been hanging around the same group of friends as before. Patient reports he has never overdosed in the past. At approximately 2330 last night, patient became more hypoxic with sat dropping down into the 80s after being put on NRB. ABG was obtained and showed PO2 in the 40s. He was placed on vapotherm at 100% FiO2 and improved after 1 hour. FiO2 was >100 and was weaned down to 40%. Patient states he feels he is breathing better but just generally feels tired and weak. Denies any pain. No fever noted. No other complaints. Hospital Course Subjective: Over course of stay, patient was weaned off vapotherm to room air as of yesterday. He was given zosyn initially. After 24 hours, 1 blood culture bottle was showing positive gram + cocci. Vancomycin was added to antibiotic regimen. Suspected contaminate. Repeat cultures negative. WBC trended down during stay. Liver enzymes were elevated initially but trended down, likely due to aspiration pneumonia. Hepatitis panel negative. Patient requested AA program information during stay that was provided by social. Appearance: Pleasant, No Apparent Distress, Alert and Well-appearing HEENT: MMM and Supple CVS: No Murmur Abdomen: Soft and Non-Tender Respiratory: No Dyspnea Extremities: No Edema Vital Signs: Most Recent Vital Signs Temperature 97.9 F 11/25/22 05:08 Temperature Source Temporal Artery Scan 11/25/22 05:08 Temperature Source Infrared 11/22/22 14:58 Pulse Rate 103 H 11/25/22 05:08 Respiratory Rate 16 11/25/22 08:00 Blood Pressure 110/65 11/25/22 05:08 Blood Pressure Mean 80 11/25/22 05:08 Blood Pressure Right Arm 98/67 11/22/22 20:44 Blood Pressure Location Left Arm 11/25/22 05:08 Blood Pressure Position Supine 11/25/22 05:08 O2 Sat by Pulse Oximetry 94 L 11/25/22 05:08 Oxygen Delivery Method Room Air 11/25/22 08:00 Oxygen Flow Rate 2 11/24/22 08:00 Fraction of Inspired Oxygen (FIO2) 40 11/23/22 10:00 Height 6 ft 11/22/22 20:44 Weight 162 lb 11/22/22 20:44 Telemetry Type Remote Telemetry 11/25/22 07:00 Telemetry Monitoring Continues 11/25/22 07:00 Telemetry Heart Rate 57 L 11/25/22 07:00 Telemetry SPO2 94 11/25/22 07:00 EKG MS Interval 0.16 11/25/22 07:00 EKG QRS Interval 0.08 11/25/22 07:00 Telemetry Strip Reading [place] Arrhythmia 11/25/22 07:00 Lab Results Last 24 Hours: 11/25/22 11/24/22 08:05 05:27 WBC 15.91 H RBC 4.18 L Hgb 12.2 L Hct 38.8 L MCV 92.8 MCH 29.2 MCHC 31.4 L RDW Coeff of Kike 13.2 Plt Count 298 Immature Gran % (Auto) 1.1 Neut % (Auto) 86.7 H Lymph % (Auto) 6.9 L [place] % (Auto) 5.2 Eos % (Auto) 0.0 Baso % (Auto) 0.1 Neut # (Auto) 13.8 H Lymph # (Auto) 1.1 [place] # (Auto) 0.8 Eos # (Auto) 0.0 Baso # (Auto) 0.0 Immature Gran # (Auto) 0.2 Sodium 141.2 Potassium 3.84 Chloride 108.3 H Carbon Dioxide 26.8 Anion Gap 9.94 BUN 9.5 Creatinine 0.61 Estimated GFR (MDRD) 169.00 BUN/Creatinine Ratio 15.57 Glucose 124.2 H Calcium 8.71 Total Bilirubin 0.60 AST 69.5 H D ALT 62.2 H Alkaline Phosphatase 55.2 Total Protein 5.83 L Albumin 3.16 L Globulin 2.67 Albumin/Globulin Ratio 1.18 Hepatitis A IgM Ab Negative Hep Bs Antigen Negative Hep B Core IgM Ab Negative Hepatitis C Antibody Non reactive Discharge Instructions Discharge Planning: Discharge Planning > 40 minutes If patient is discharged with left ventricular systolic dysfunction: NA Discharged with a beta buddy? [] If no, why not? [] Discharged with an israel/arb? [] If no, why not? [] Prescribed amoxicillin x 7 days for aspiration pneumonia and medrol dose pack Activity as tolerated Regular diet follow-up with PCP as scheduled Discharge Medications: Medications at Discharge (Home Meds & RX) amoxicillin 875 mg-potassium clavulanate 125 mg tablet 1 tab PO BID #14 tabs 11/25/22 methylprednisolone 4 mg tablets in a dose pack (Medrol (Julito)) See Rx Instructions PO .COMPLEX #21 ea 11/25/22 Discharge Plan Discharge Discharge Orders: Discharge Patient (ONCE); Ordered 11/25/22 Ordered By: PEDRO CONTRERAS Activity Restrictions/Additional Instructions: Activity as tolerated Regular diet Complete course of antibiotics Follow-up with a PCP [facility], ADDRESS IS [address] [place] [address], PHONE NUMBER IS [phone]. MEETING TIMES ARE MONDAY AND MONDAY AT 8PM, DOORS OPEN AT 7PM. Instructions: Aspiration Pneumonia (GEN), Methamphetamine Use Disorder (GEN), Adult Overdose (ED) Patient Disposition: HOME WITH FAMILY CARE Prescriptions: New methylprednisolone [Medrol (Julito)] 4 mg tablets,dose pack See Rx Instructions .ROUTE .COMPLEX Qty: 21 0RF Rx Instructions: orally per package directions amoxicillin-pot clavulanate 875-125 mg tablet 1 tab PO BID Qty: 14 0RF Did you review [place] REJECT OPENER for ALL controlled substances?: No Discussed opioids are addictive and Narcan is available by prescription or from pharmacy.: No Condition: Fair
== END 2022-11-25 10:00 | disposition home or self-care (01) | DRG 177 ==
LOC: ED 14:55 → MEDSURG B 19:33
PROVIDERS: ADMIT Emergency Medicine; ATTEND Nurse Practitioner Family